=== PATIENT | male | born 1940 | race Caucasian/White ===

== ENCOUNTER 2019-11-06 08:59 | Inpatient (IN) | payer OTHER ==
[~2019-11-06] VITALS: Ht 172.7 cm; Wt 92.5 kg
[2019-11-06] MEDS ORDERED: SODIUM CHLORIDE 0.9% 1,000 ML IV ONE (09:37)
[2019-11-06] MEDS ORDERED: ONDANSETRON 2MG/ML, 2ML IVPush PRN (10:00)
[2019-11-06] MEDS ORDERED: ALBU2.5V11 NEB (10:09)
[2019-11-06] MEDS ORDERED: MULT-658 PO (10:09)
[2019-11-06] MEDS ORDERED: DICL1TAB49 PO (10:09)
[2019-11-06] MEDS ORDERED: ATOR40TA78 PO (10:09)
[2019-11-06] MEDS ORDERED: PANT40TA5 PO (10:09)
[2019-11-06] MEDS ORDERED: IBUP-1223 PO (10:09)
[2019-11-06] MEDS ORDERED: ASPI81TA45 PO (10:09)
[2019-11-06] MEDS ORDERED: BUDE10.27 INH (10:09)
[2019-11-06] MEDS ORDERED: magnesium PO (10:09)
[2019-11-06] MEDS ORDERED: PAPA100T PO (10:09)
[2019-11-06 10:10] VITALS: BP 125/93
[2019-11-06 10:11] LABS: BASOPHILS # (AUTO) 0.03 x10^3/uL (0-0.1); BASOPHILS % (AUTO) 1 % (0-1); EOSINOPHILS # (AUTO) 0.27 x10^3/uL (0-0.4); EOSINOPHILS % (AUTO) 5 % (1-7); LYMPHOCYTES # (AUTO) 1.67 x10^3/uL (1-3.4); LYMPHOCYTES % (AUTO) 31 % (22-44); MD NO; MEAN CORPUSCULAR HEMOGLOBIN 29.2 pg (27.5-34.5); MEAN CORPUSCULAR HGB CONC 33.2 g/dL (33.2-36.2); MEAN CORPUSCULAR VOLUME 87.9 fL (81-97); MEAN PLATELET VOLUME 11.2 fL (7.4-10.4); MONOCYTES # (AUTO) 0.46 x10^3/uL (0.2-0.8); MONOCYTES % (AUTO) 9 % (2-9); NEUTROPHILS % (AUTO) 55 % (42-75); PLATELET COUNT 131 x10^3/uL (130-400); RED BLOOD COUNT 4.59 x10^6/uL (4.38-5.82); RED CELL DISTRIBUTION WIDTH 14.6 % (9.4-14.8)
[2019-11-06 10:22] LABS: ALANINE AMINOTRANSFERASE 26 U/L (12-78); ALBUMIN 3.6 g/dL (3.4-5.0); ANION GAP 5 mmol/L (5-15); CALCIUM 9.3 mg/dL (8.5-10.1); CHLORIDE 113 mmol/L (98-107)
[2019-11-06 10:25] LABS: ALKALINE PHOSPHATASE 105 U/L (45-117); CREATININE 1.27 mg/dL (0.7-1.3); TOTAL PROTEIN 7.3 g/dL (6.4-8.2)
[2019-11-06 10:29] LABS: INTERNATIONAL NORMALIZED RATIO 0.99 (0.93-1.1); PROTHROMBIN TIME 10.5 Seconds (9.6-11.5)
[2019-11-06] MEDS ORDERED: PLEASE ENTER HEIGHT AND WEIGHT MC SCH (10:30)
[2019-11-06] MEDS ORDERED: FENTANYL PF 250 MCG/5ML ONE (11:10)
[2019-11-06] MEDS ORDERED: PROPOFOL 10 MG/ML, 20ML ONE (11:18)
[2019-11-06] MEDS ORDERED: ROCURONIUM 10 MG/ML,10ML ONE (11:18)
[2019-11-06] MEDS ORDERED: ONDANSETRON 2MG/ML, 2ML ONE (11:18)
[2019-11-06] MEDS ORDERED: SUCCINYLCHOLINE 20 MG/ML, 10ML ONE (11:18)
[2019-11-06] MEDS ORDERED: CEFAZOLIN 1,000 MG ONE (11:18)
[2019-11-06] MEDS ORDERED: ALBUTEROL SULFATE 2.5MG/0.5ML NEB PRN (12:30)
[2019-11-06] MEDS ORDERED: CLOPIDOGREL 300 MG TABLET PO ONE (12:30)
[2019-11-06] MEDS ORDERED: BENZOCAINE 20% SPRAY 0.5ML TP ONE (14:00)
[2019-11-06] MEDS ORDERED: HYDROcodone/APAP 5/325 TABLET PO PRN (14:00)
[2019-11-06] MEDS ORDERED: ACETAMINOPHEN 325 MG TABLET ONE (16:07)
[2019-11-06] MEDS ORDERED: ACETAMINOPHEN 325 MG TABLET PO ONE (17:00)
[2019-11-06 20:31] VITALS: BP_SYST 92; BP_SYST 95; BP_DIAS 62
[2019-11-06] MEDS: GUAIFENESIN 200 MG TABLET PO SCH (20:39)
[2019-11-06] MEDS: FORMOTEROL FUMARATE INH SCH (20:40)
[2019-11-06] MEDS: BUDESONIDE INH SCH (20:40)
[2019-11-06] MEDS ORDERED: IBUPROFEN 800 MG TABLET PO SCH (21:00)
[2019-11-06] MEDS ORDERED: ASPIRIN 81 MG TABLET EC PO SCH (21:00)
[2019-11-06] MEDS ORDERED: ATORVASTATIN 40 MG TABLET PO SCH (21:00)
[2019-11-06] MEDS ORDERED: MULTIVITAMIN 1 TABLET PO SCH (21:00)
[2019-11-06] MEDS ORDERED: PANTOPRAZOLE 40MG TABLET PO SCH (21:00)
[2019-11-06] MEDS ORDERED: CLOPIDOGREL 300 MG TABLET ONE (21:51)
[2019-11-06] MEDS ORDERED: HYDROcodone/APAP 5/325 TABLET ONE (21:51)
[2019-11-07 03:23] VITALS: BP 93/57
[2019-11-07 05:08] LABS: CHLORIDE 107 mmol/L (98-107)
[2019-11-07 05:13] LABS: ANION GAP 6 mmol/L (5-15); CALCIUM 8.8 mg/dL (8.5-10.1); CREATININE 1.24 mg/dL (0.7-1.3)
[2019-11-07 06:13] LABS: BASOPHILS # (AUTO) 0.03 x10^3/uL (0-0.1); BASOPHILS % (AUTO) 0 % (0-1); EOSINOPHILS # (AUTO) 0.04 x10^3/uL (0-0.4); EOSINOPHILS % (AUTO) 0 % (1-7); LYMPHOCYTES # (AUTO) 1.73 x10^3/uL (1-3.4); LYMPHOCYTES % (AUTO) 13 % (22-44); MD SCAN; MEAN CORPUSCULAR HEMOGLOBIN 28.8 pg (27.5-34.5); MEAN CORPUSCULAR HGB CONC 32.3 g/dL (33.2-36.2); MEAN CORPUSCULAR VOLUME 89.2 fL (81-97); MEAN PLATELET VOLUME 10.9 fL (7.4-10.4); MONOCYTES # (AUTO) 0.98 x10^3/uL (0.2-0.8); MONOCYTES % (AUTO) 8 % (2-9); NEUTROPHILS # (AUTO) 10.07 x10^3/uL (1.8-6.8); NEUTROPHILS % (AUTO) 78 % (42-75); PLATELET COUNT 94 x10^3/uL (130-400); RED BLOOD COUNT 4.22 x10^6/uL (4.38-5.82); RED CELL DISTRIBUTION WIDTH 14.9 % (9.4-14.8)
[2019-11-07] MEDS: BUDESONIDE INH SCH (07:44)
[2019-11-07] MEDS: FORMOTEROL FUMARATE INH SCH (07:44)
[2019-11-07] MEDS: GUAIFENESIN 200 MG TABLET PO SCH (07:50)
[2019-11-07 08:25] VITALS: BP 123/79
[2019-11-07] MEDS ORDERED: CLOPIDOGREL 75 MG TABLET PO SCH (09:00)
[2019-11-07] MEDS ORDERED: CLOP75TA PO (10:08)
== END 2019-11-07 13:14 | disposition home or self-care (01) | DRG 266 ==
LOC: ORIP 08:59 → 5SO 12:22
PROVIDERS: ADMIT Internal Medicine Cardiovascular Disease; ATTEND Internal Medicine Cardiovascular Disease
PROC: B24BZZ4 Ultrasonography of Heart with Aorta, Transesophageal (ICD-10-PCS; 2019-11-06)
PROC: 02RF38Z Replacement of Aortic Valve with Zooplastic Tissue, Percutaneous Approach (ICD-10-PCS; principal; 2019-11-06 14:00)
DX: I35.0 Nonrheumatic aortic (valve) stenosis (principal); I50.33 Acute on chronic diastolic (congestive) heart failure; I25.10 Atherosclerotic heart disease of native coronary artery without angina pectoris; F01.50 Vascular dementia, unspecified severity, without behavioral disturbance, psychotic disturbance, mood disturbance, and anxiety; K21.9 Gastro-esophageal reflux disease without esophagitis; E78.5 Hyperlipidemia, unspecified; G47.33 Obstructive sleep apnea (adult) (pediatric); I11.0 Hypertensive heart disease with heart failure; I49.5 Sick sinus syndrome; Z87.891 Personal history of nicotine dependence; Z95.0 Presence of cardiac pacemaker; Z90.49 Acquired absence of other specified parts of digestive tract
CPT/HCPCS: 33361; 36415; 76937; 80048; 80053; 85025; 85347; 85610; 86850; 86900; 86923; 93005; 93306; 93312; 93321; 93325; 93355; C1760; C1769; C1894; G0378; J0690; J2405; J2704; J3010; J0330; Q9967

== ENCOUNTER → 2019-12-18 | Outpatient (CLI) | payer OTHER ==
[~2019-12-18] MED LIST: ALBU2.5V11 NEB; ASPI81TA45 PO; ATOR40TA78 PO; BUDE10.27 INH; CLOP75TA PO; DICL1TAB49 PO; IBUP-1223 PO; MULT-658 PO; PANT40TA5 PO; PAPA100T PO; magnesium PO
== END | disposition home or self-care (01) ==
LOC: CVU 10:14
PROVIDERS: ATTEND Internal Medicine Cardiovascular Disease
DX: I08.8 Other rheumatic multiple valve diseases (principal); R06.02 Shortness of breath; I65.29 Occlusion and stenosis of unspecified carotid artery; Z95.0 Presence of cardiac pacemaker
CPT/HCPCS: 93306